=== PATIENT | female | born 1990 | race Caucasian/White ===

== ENCOUNTER 2017-05-26 23:15 | Day surgery (SDC) | payer MEDICAID, OTHER ==
[2017-05-26 23:48] VITALS: BP 126/82; TEMP 97.7; BMI 24.7
--- NOTE | 2017-05-27 01:37 | SS ---
LABOR AND DELIVERY EVALUATION NOTE ATTENDING PROVIDER: Nano ROME CHIEF COMPLAINT: Contractions at home. HISTORY OF PRESENT ILLNESS: Ms. Jami Mcdonald is a 26-year-old white -0-0-1 estimated date of confi nement of 06/06/2017 who presents complaining of contractions since 9:00 this morning. She denies ru ptured membranes or vaginal bleeding. Her care has been with Nano An at [facility]. She reports no complications. PAST OBSTETRICAL HISTORY: Remarkable for previous induction for preeclampsia. She reports her blood pressures have been good this . PAST MEDICAL HISTORY: Unremarkable. PAST SURGICAL HISTORY: Breast augmentation. SOCIAL HISTORY: She smokes. Denies drug use. ALLERGIES: No significant allergies. PHYSICAL EXAMINATION: VITAL SIGNS: Stable. She is afebrile. ABDOMEN: Soft, gravid, nontender. PELVIC: Exam by the labor nurse is 3 cm dilated, 60-70% effaced with the vertex high. heart t ones are stable and reassuring. There are no decelerations. There is good beat to beat variability and spontaneous accelerations are seen. Contractions are seen every 3-5 minutes that are mild to pal pation. ASSESSMENT: 1. Term intrauterine . 2. Not currently in active labor. PLAN: At this time, the patient was given the option of being observed here and reexamined in an mikey r or two versus going home to rest. At this time, she would like to go home and do that. She was gi rafael complete labor precautions and will return here for increasing contractions, ruptured membranes, vaginal bleeding or decreased movement. She understands her discharge instructions and is sent home in good condition.
== END 2017-05-27 00:17 | disposition home or self-care (01) ==
LOC: L&D/OP 23:15
PROVIDERS: ATTEND Student in an Organized Health Care Education/Training Program
DX: O47.1 False labor at or after 37 completed weeks of gestation (principal); O99.333 Smoking (tobacco) complicating pregnancy, third trimester; Z98.890 Other specified postprocedural states; Z3A.00 Weeks of gestation of pregnancy not specified
CPT/HCPCS: 99282

== ENCOUNTER 2017-06-07 19:04 | Inpatient (IN) | payer OTHER ==
[2017-06-07 19:48] VITALS: BMI 24.8
[2017-06-07] MEDS ORDERED: Ondansetron HCl/PF 4 MG/2 ML Vial IVP PRN (22:23)
[2017-06-07] MEDS ORDERED: Lidocaine 1% (PF) 30 ML VIAL SC PRN (22:23)
[2017-06-07] MEDS ORDERED: Ibuprofen 800 MG TAB PO PRN (22:23)
[2017-06-07] MEDS ORDERED: Acetaminophen/Codeine 30-300mg Tablet PO PRN ×2 (22:23)
[2017-06-07] MEDS ORDERED: Lactated Ringer's 1,000 ML IV SCH (22:30)
[2017-06-07] MEDS ORDERED: LR 500 ML/Oxytocin 10 units 500 ML IV SCH (22:30)
[2017-06-07] MEDS: Lactated Ringer's 1,000 ML IV SCH (22:40)
[2017-06-07 23:16] LABS: Hemoglobin 14.3 g/dL (12.0-16.0); Mean Corpuscular HGB CONC 32.7 g/dL (32.0-36.0); Mean Corpuscular Hemoglobin 27.1 pg (27.0-31.0); Mean Corpuscular Volume 82.8 fl (81.0-99.0); Platelet Count 207 thou/uL (130-400); RBC Distribution Width 20.8 % (11.5-14.5); Red Blood Cell (RBC) Count 5.27 mill/uL (4.20-5.40); White Blood Cell (WBC) Count 12.7 thou/uL (4.8-10.8)
[2017-06-07 23:53] LABS: Syphilis Antibody Nonreactive (Nonreactive); Syphilis Antibody Index 0.07 S/CO (<1.00 Non-Reactive)
[2017-06-08 00:10] LABS: HBSAg Index 0.42 S/CO (0-0.99); Hep B Surf Ag Non-Reactive S/CO (NonReactive)
[2017-06-08] MEDS ORDERED: Fentanyl 100 MCG/2 ML VIAL ONE (01:49)
[2017-06-08] MEDS ORDERED: Bupivacaine 0.75% W/DEXTROSE 8.25% 2 ML AMP ONE (01:49)
[2017-06-08] MEDS ORDERED: Bupivacaine 0.5% 20 ML, Fentanyl 400 MCG in Sodium Chloride 0.9% 72 ML EPIDURAL SCH (02:00)
[2017-06-08] MEDS ORDERED: DISCONTINUE ALL PREVIOUS NARCOTICS FS SCH (02:00)
[2017-06-08] MEDS ORDERED: Ondansetron HCl/PF 4 MG/2 ML Vial IVP PRN ×2 (02:13→09:30)
[2017-06-08] MEDS ORDERED: Lactated Ringer's 500 ML IV PRN (02:13)
[2017-06-08] MEDS ORDERED: Eucerin (Mineral Oil/Petrolatum,White) 30 gm Jar TOP PRN (02:13)
[2017-06-08] MEDS ORDERED: Fentanyl 100 MCG/2 ML VIAL I-THECAL ONE (02:13)
[2017-06-08] MEDS ORDERED: Promethazine HCl 25 MG/ML VIAL IM PRN (02:13)
[2017-06-08] MEDS ORDERED: Naloxone HCl 0.4 mg/ml Vial IVP PRN ×2 (02:13)
[2017-06-08] MEDS ORDERED: diphenhydrAMINE 50 MG/ML VIAL IVP PRN (02:13)
[2017-06-08] MEDS ORDERED: Bupivacaine 0.75% W/DEXTROSE 8.25% 2 ML AMP NERVE BLCK ONE (02:13)
[2017-06-08] MEDS ORDERED: ePHEDrine/0.9% NaCl/PF SYRINGE 50 mg/10 ml SLOW IVP PRN (02:13)
[2017-06-08] MEDS ORDERED: Acetaminophen 325 MG TAB PO PRN (02:13)
[2017-06-08] MEDS ORDERED: Communication Order-Pharmacy FS SCH (02:15)
[2017-06-08] MEDS ORDERED: Fentanyl 4mcg/Marcaine 0.1% Cassette 100 ML EPIDURAL SCH (02:15)
[2017-06-08] MEDS: Lactated Ringer's 1,000 ML IV SCH (02:28)
[2017-06-08] MEDS: LR / Pitocin 40 units/1000 ml 1,000 ML IV PRN ×2 (07:15→08:44)
--- NOTE | 2017-06-08 07:33 | PDOC.OPDEL ---
OB Operative/Delivery Note Delivery Dr/Surgeon: Chester An Pre-Delivery Diagnosis: active labor Procedure/Post Delivery Dx: spontaneous vaginal delivery Weeks gestation: 40 Anesthesia: epidural - Findings A Sex: female Weight: 7 lb 10 oz - 1 min: 8 - 5 min: 9 - Additional Findings/Plan Placenta delivered: spontaneous Repaired Obstetrical Laceration: 1st degree Estimated blood loss: 200 Post delivery plan: routine recovery
[2017-06-08] MEDS ORDERED: Benzocaine/Menthol 20-0.5% 60 ML CAN TOP PRN (09:30)
[2017-06-08] MEDS ORDERED: LR / Pitocin 40 units/1000 ml 1,000 ML IV SCH (09:30)
[2017-06-08] MEDS ORDERED: Varicella virus, LIVE 0.5 ML VIAL SC ONE (09:30)
[2017-06-08] MEDS ORDERED: Milk Of Magnesia 30 ML UDCUP PO PRN (09:30)
[2017-06-08] MEDS ORDERED: Bisacodyl 10 MG SUPP PR PRN (09:30)
[2017-06-08] MEDS ORDERED: HYDROcodone/Acetaminophen 5/325 mg Tablet PO PRN ×2 (09:30)
[2017-06-08] MEDS ORDERED: Lanolin Ointment 7 GM TUBE TOP PRN (09:30)
[2017-06-08] MEDS ORDERED: Methylergonovine 0.2 MG/ML VIAL IM PRN (09:30)
[2017-06-08] MEDS ORDERED: Misoprostol 200 MCG TAB VAG SCH (09:30)
[2017-06-08] MEDS: Docusate Calcium (SURFAK) 240 MG CAP PO SCH ×2 (09:44→20:43)
[2017-06-08] MEDS: Ibuprofen 800 MG TAB PO SCH ×2 (09:47→20:44)
[2017-06-08] MEDS: Prenatal Vitamin 1 TAB PO SCH (13:35)
[2017-06-08] MEDS ORDERED: Ferrous Sulfate 325 MG TAB PO SCH (17:00)
[2017-06-08] MEDS ORDERED: Adacel (T-DAP) 0.5 ML VIAL IM ONE (18:00)
[2017-06-08] MEDS ORDERED: Measles/Mumps/Rubella 10 MCG/0.5 ML VIAL SC ONE (18:00)
[2017-06-09 05:49] LABS: Hemoglobin 11.5 g/dL (12.0-16.0); Mean Corpuscular HGB CONC 32.5 g/dL (32.0-36.0); Mean Corpuscular Hemoglobin 27.5 pg (27.0-31.0); Mean Corpuscular Volume 84.5 fl (81.0-99.0); Mean Platelet Volume 10.2 fL (7.4-10.4); Platelet Count 182 thou/uL (130-400); RBC Distribution Width 20.8 % (11.5-14.5); Red Blood Cell (RBC) Count 4.19 mill/uL (4.20-5.40); White Blood Cell (WBC) Count 9.1 thou/uL (4.8-10.8)
[2017-06-09] MEDS: Ibuprofen 800 MG TAB PO SCH ×2 (07:28→14:02)
[2017-06-09] MEDS: Docusate Calcium (SURFAK) 240 MG CAP PO SCH (09:00)
[2017-06-09] MEDS: Prenatal Vitamin 1 TAB PO SCH (09:00)
[2017-06-09 12:21] VITALS: BP 117/64; TEMP 97.8
== END 2017-06-09 15:30 | disposition home or self-care (01) | DRG 775 ==
LOC: L&D/OP 19:04 → L&D 23:12 → 3SW 06-08 10:40
PROVIDERS: ADMIT Student in an Organized Health Care Education/Training Program; ATTEND Student in an Organized Health Care Education/Training Program
PROC: 10E0XZZ Delivery of Products of Conception, External Approach (ICD-10-PCS; principal; 2017-06-08)
PROC: 0HQ9XZZ Repair Perineum Skin, External Approach (ICD-10-PCS; 2017-06-08)
DX: O99.334 Smoking (tobacco) complicating childbirth (principal); F17.210 Nicotine dependence, cigarettes, uncomplicated; O70.0 First degree perineal laceration during delivery; Z3A.40 40 weeks gestation of pregnancy; Z37.0 Single live birth; Z23 Encounter for immunization
CPT/HCPCS: 36415; 51702; 85027; 86780; 87340; 90471; 90715; 90716; 90732; 99285; G0009; J2001; J3010; J3490; J7050; J7120